=== PATIENT | female | born 1990 | race Two or more races ===

== ENCOUNTER 2019-11-03 10:52 | Emergency (ER) | payer OTHER ==
[~2019-11-03] VITALS: Ht 160 cm; Wt 70.3 kg
[2019-11-03 11:05] VITALS: BP 138/90
== END 2019-11-03 12:57 ==
LOC: ER 10:59
DX: S76.012A Strain of muscle, fascia and tendon of left hip, initial encounter (principal); F41.9 Anxiety disorder, unspecified; F17.200 Nicotine dependence, unspecified, uncomplicated; V49.69XA Unspecified car occupant injured in collision with other motor vehicles in traffic accident, initial encounter; Y93.89 Activity, other specified; Y92.413 State road as the place of occurrence of the external cause; Y99.8 Other external cause status
CPT/HCPCS: 73502

== ENCOUNTER 2019-12-30 03:54 | Emergency (ER) | payer OTHER ==
[~2019-12-30] VITALS: Ht 157.5 cm; Wt 65.8 kg
[2019-12-30 04:02] VITALS: BP 131/87
[2019-12-30] MEDS ORDERED: DEXAMETHASONE SOD PHOSPHATE 10 MG/ML VIAL ONE (04:56)
[2019-12-30] MEDS ORDERED: DEXAMETHASONE SOD PHOSPHATE 4 MG/ML VIAL IM ONE (05:00)
== END 2019-12-30 05:05 | disposition home or self-care (01) ==
LOC: ER 03:56
DX: J04.0 Acute laryngitis (principal); J06.9 Acute upper respiratory infection, unspecified; Z98.890 Other specified postprocedural states
CPT/HCPCS: 87880; 96372; 99283; J1100; 86403-TC

== ENCOUNTER 2020-06-04 18:07 | Emergency (ER) | payer SELFPAY ==
[~2020-06-04] VITALS: Ht 160 cm; Wt 75.3 kg
--- NOTE | 2020-06-04 20:00 | NUR ---
PATIENT CAME TO ER BED 11 C/O LEFT SIDED CHEST CRAMPING PAIN RADIATING TO THE RIGHT SIDE OF HER CHEST SINCE YESTERDAY FOR 2 MONTHS. PATIENT STATES THAT SHE HAS BEEN DRINKING A LOT OF CAFFINATED DAVIN TEA. PATIENT IS AAOX4. NO SOB. BREATHING EVENLY AND UNLABORED ON ROOM AIR. CONNECTED TO HOSPICE MUSIC THERAPY.
[2020-06-04] MEDS ORDERED: KETOROLAC TROMETHAMINE INJ 30 MG/ML VIAL ONE (20:04)
--- NOTE | 2020-06-04 20:05 | NUR ---
XRAY AT BEDSIDE FOR XRAY
[2020-06-04] MEDS: IV NS 0.9% 1,000 ML BAG IV ONE (20:07)
[2020-06-04] MEDS: KETOROLAC TROMETHAMINE INJ 30 MG/ML VIAL IV ONE (20:08)
--- NOTE | 2020-06-04 20:12 | NUR ---
BLOOD DRAWNA AND SENT TO LAB.
[2020-06-04 20:22] LABS: BASOPHILS % (AUTO) 0.4 % (0.0-2.0); EOSINOPHILS % (AUTO) 1.5 % (0.0-6.0); HEMATOCRIT 46 % (33-45); HEMOGLOBIN 15.4 g/dL (11.5-14.8); LYMPHOCYTES # (AUTO) 3.2 /CMM (0.8-4.8); LYMPHOCYTES % (AUTO) 30.3 % (20.0-44.0); MEAN CORPUSCULAR HGB CONC 33 g/dl (31.0-36.0); MEAN CORPUSCULAR VOLUME 94 fL (82-100); MONOCYTES # (AUTO) 0.7 /CMM (0.1-1.30); MONOCYTES % (AUTO) 6.1 % (2.0-12.0); NEUTROPHILS # (AUTO) 6.6 /CMM (1.8-8.9); NEUTROPHILS % (AUTO) 61.7 % (43.0-81.0); PLATELET COUNT (AUTO) 348 /CMM (150-450); RED BLOOD CELL COUNT(AUTO) 4.94 MIL/uL (4.0-5.2); WHITE BLOOD COUNT (AUTO) 10.7 K/uL (4.3-11.0)
[2020-06-04 20:37] LABS: ALBUMIN 3.9 g/dL (3.4-5.0); BILIRUBIN,DIRECT 0.1 mg/dL (0.0-0.2); BILIRUBIN,TOTAL 0.4 mg/dL (0.2-1.0); CALCIUM, SERUM 9.5 mg/dL (8.5-10.1); POTASSIUM 3.6 mmol/L (3.5-5.1); TOTAL PROTEIN, SERUM 8.1 g/dL (6.4-8.2)
--- NOTE | 2020-06-04 21:06 | NUR ---
Patient discharged to home in stable condition. Written and verbal after care instructions given. Patient verbalizes understanding of instruction.
--- NOTE | 2020-06-04 21:06 | NUR ---
IV removed. Catheter intact and site benign. Pressure and 4x4 applied to site. No bleeding noted.
[2020-06-04 21:07] VITALS: BP 127/84
== END 2020-06-04 21:08 | disposition home or self-care (01) ==
LOC: ER 18:11
DX: R55 Syncope and collapse (principal); E86.0 Dehydration; R51 Headache; R42 Dizziness and giddiness; Z98.890 Other specified postprocedural states
CPT/HCPCS: 36415; 71045; 80048; 80076; 84703; 85025; 93005; 96361; 96374; 99285; J1885; J7030

== ENCOUNTER 2021-04-30 13:21 | Emergency (ER) | payer OTHER ==
[~2021-04-30] VITALS: Ht 160 cm; Wt 77.1 kg
[2021-04-30 13:30] VITALS: BP 117/60
[2021-04-30] MEDS ORDERED: IBUPROFEN 400 MG TABLET PO ONE (14:30)
[2021-04-30] MEDS ORDERED: ACETAMINOPHEN ES 500 MG TABLET PO ONE (14:30)
[2021-04-30] MEDS ORDERED: ACETAMINOPHEN ES 500 MG TABLET ONE (14:40)
[2021-04-30] MEDS ORDERED: IBUPROFEN 400 MG TABLET ONE (14:41)
--- NOTE | 2021-05-02 01:37 | NUR ---
PER LAB; PT COVID +
== END 2021-04-30 16:28 | disposition home or self-care (01) ==
LOC: ER 13:22
DX: U07.1 COVID-19 (principal); M79.10 Myalgia, unspecified site; F41.9 Anxiety disorder, unspecified
CPT/HCPCS: 71045; 87426; 99284; C9803; U0003

== ENCOUNTER 2021-05-09 09:55 | Emergency (ER) | payer OTHER ==
[~2021-05-09] VITALS: Ht 165.1 cm; Wt 77.1 kg
--- NOTE | 2021-05-09 09:55 | NUR ---
PT BIB SELF C/O COUGH, CONGESTION AND BODYACHES. PT IS COVID +. PT IS AAOX4, NOT IN RESPIRATORY DISTRESS, HOOKED TO WELDING MACHINE ASSEMBLER, KEPT RESTED AND COMFORTABLE. WILL CONTINUE TO MONITOR.
--- NOTE | 2021-05-09 11:05 | NUR ---
AT BEDSIDE FOR EVAL.
--- NOTE | 2021-05-09 11:15 | NUR ---
IV LINE ESTABLISHED BLOOD DRAWN AND SENT TO LAB.
--- NOTE | 2021-05-09 11:19 | NUR ---
CORE WINDING OPERATOR AT BEDSIDE FOR XRAY.
[2021-05-09 11:29] LABS: BASOPHILS # (AUTO) 0.1 K/uL (0.0-0.2); EOSINOPHILS % (AUTO) 0.1 % (0.0-6.0); HEMATOCRIT 42 % (33-45); HEMOGLOBIN 14.6 g/dL (11.5-14.8); LYMPHOCYTES # (AUTO) 1.5 K/uL (0.8-4.8); LYMPHOCYTES % (AUTO) 23.3 % (20.0-44.0); MEAN CORPUSCULAR HGB CONC 35 g/dl (31.0-36.0); MEAN CORPUSCULAR VOLUME 91 fL (82-100); MONOCYTES # (AUTO) 0.5 K/uL (0.1-1.30); MONOCYTES % (AUTO) 7.5 % (2.0-12.0); NEUTROPHILS # (AUTO) 4.3 K/uL (1.8-8.9); NEUTROPHILS % (AUTO) 68.1 % (43.0-81.0); PLATELET COUNT (AUTO) 331 K/uL (150-450); RED BLOOD CELL COUNT(AUTO) 4.63 MIL/uL (4.0-5.2); WHITE BLOOD COUNT (AUTO) 6.2 K/uL (4.3-11.0)
[2021-05-09] MEDS ORDERED: ONDANSETRON HCL/PF 4 MG/2 ML VIAL ONE (11:30)
[2021-05-09] MEDS ORDERED: IV NS 0.9% 1,000 ML BAG IV ONE (11:30)
[2021-05-09] MEDS ORDERED: ACETAMINOPHEN 650 MG/SUPP.RECT RC ONE (11:30)
[2021-05-09] MEDS ORDERED: ONDANSETRON HCL/PF - ER 4 MG/2 ML VIAL IV ONE (11:30)
[2021-05-09 11:42] LABS: CALCIUM, SERUM 8.4 mg/dL (8.5-10.1); CARBON DIOXIDE 26 mmol/L (21-32); CHLORIDE 102 mmol/L (98-107); CREATININE 0.8 mg/dL (0.6-1.3); GLUCOSE 103 mg/dL (74-106); POTASSIUM 3.8 mmol/L (3.5-5.1); SODIUM SERUM 138 mmol/L (136-145); UREA NITROGEN, BLOOD 13 mg/dL (7-18)
[2021-05-09 11:47] LABS: ALANINE AMINOTRANSFERASE 106 U/L (12-78); ALBUMIN 3.2 g/dL (3.4-5.0); ALKALINE PHOSPHATASE 153 U/L (46-116); ASPARTATE AMINOTRANSFERASE 48 U/L (15-37); BILIRUBIN,TOTAL 0.7 mg/dL (0.2-1.0); TOTAL PROTEIN, SERUM 7.7 g/dL (6.4-8.2)
[2021-05-09 13:15] LABS: BILIRUBIN,URINE MODERATE (NEGATIVE); COLOR,URINE YELLOW (YELLOW); LEUKOCYTE ESTERASE ,URINE Negative (NEGATIVE); NITRITE, URINE Negative (NEGATIVE); PROTEIN,URINE 100 mg/dl (NEGATIVE); UGLUCOSE Negative (NEGATIVE)
[2021-05-09 13:20] LABS: BACTERIA,URINE Rare /HPF (None Seen); RBC,URINE NONE SEEN /HPF (0-2); SQUAMOUS EPITHELIAL CELL,UR Few /HPF (None Seen); WBC,URINE NONE SEEN /HPF (0-3)
[2021-05-09] MEDS ORDERED: AZIT250T13 PO (14:01)
--- NOTE | 2021-05-09 14:08 | NUR ---
CALLED PT CONOR PAGE, . HE WILL COME IN 15-20 MINUTES
[2021-05-09 14:27] VITALS: BP 124/61
--- NOTE | 2021-05-09 14:27 | NUR ---
IV removed. Catheter intact and site benign. Pressure and 4x4 applied to site. No bleeding noted. Patient discharged to home in stable condition. Written and verbal after care instructions given. Patient verbalizes understanding of instruction.
== END 2021-05-09 14:27 | disposition home or self-care (01) ==
LOC: ER 09:55
DX: U07.1 COVID-19 (principal); R07.89 Other chest pain; R11.2 Nausea with vomiting, unspecified; F41.9 Anxiety disorder, unspecified; Z98.890 Other specified postprocedural states
CPT/HCPCS: 36415; 71045; 80053; 81001; 84484; 84703; 85025; 85378; 93005; 96361; 96374; 99285; J2405 ×2; J7030

== ENCOUNTER 2021-06-18 11:35 | Emergency (ER) | payer OTHER ==
[~2021-06-18] VITALS: Ht 160 cm; Wt 77.1 kg
[~2021-06-18 11:35] MED LIST: AZIT250T13 PO
[2021-06-18 12:20] VITALS: BP 110/71
--- NOTE | 2021-06-18 12:20 | NUR ---
Patient does not wish to proceed with medical care recommended by Dr. Stockton. Patient given information related to possible complications, up to and including , which could occur as a result of leaving the hospital at this time. Patient verbalizes understanding of risks involved due to leaving against medical advice. Patient has signed AMA form. Refused all labs.
== END 2021-06-18 12:20 | disposition left against medical advice (07) ==
LOC: ER 12:13
DX: R06.02 Shortness of breath (principal); F41.9 Anxiety disorder, unspecified; F17.200 Nicotine dependence, unspecified, uncomplicated; Z98.890 Other specified postprocedural states

== ENCOUNTER 2022-01-24 20:29 | Emergency (ER) | payer OTHER ==
[~2022-01-24] VITALS: Ht 157.5 cm; Wt 72.6 kg
--- NOTE | 2022-01-24 20:58 | NUR ---
TO ER BED 2. BIBS C/O L RIB PAIN, PT FELL A WEEK AGO AND HIT L RIB, BRUISING NOTED. PT CHANGED INTO GOWN. AWAITING MD VANESSA
[2022-01-24] MEDS ORDERED: CYCLOBENZAPRINE 10 MG TABLET ONE (21:26)
[2022-01-24] MEDS ORDERED: KETOROLAC TROMETHAMINE INJ 30 MG/ML VIAL ONE (21:26)
[2022-01-24] MEDS ORDERED: CYCLOBENZAPRINE 10 MG TABLET PO ONE (21:30)
[2022-01-24] MEDS ORDERED: LIDOCAINE 5% (PATCH) 1 EA PATCH TP SCH (21:30)
[2022-01-24] MEDS ORDERED: KETOROLAC TROMETHAMINE INJ 60 MG/2 ML VIAL IM ONE (21:30)
--- NOTE | 2022-01-24 21:38 | NUR ---
LICENSED OPTICIAN AT PT'S BEDSIDE
--- NOTE | 2022-01-24 22:37 | NUR ---
LIDODERM PATCH 5% NOT AVAILABLE, MADE AWARE
--- NOTE | 2022-01-24 22:55 | NUR ---
INCENTIVE SPIROMETER EDUCATION PROVIDED TO PT
[2022-01-24] MEDS ORDERED: LIDO30AD10 TP (22:56)
[2022-01-24] MEDS ORDERED: CYCL5TAB PO (22:56)
[2022-01-24] MEDS ORDERED: IBUP-1953 PO (22:56)
--- NOTE | 2022-01-24 23:10 | NUR ---
Patient discharged to home in stable condition. Written and verbal after care instructions given. Patient verbalizes understanding of instruction.
[2022-01-24 23:12] VITALS: BP 144/79
== END 2022-01-24 23:12 | disposition home or self-care (01) ==
LOC: ER 20:36
DX: S20.212A Contusion of left front wall of thorax, initial encounter (principal); F41.9 Anxiety disorder, unspecified; Z86.19 Personal history of other infectious and parasitic diseases; Z79.1 Long term (current) use of non-steroidal anti-inflammatories (NSAID); Z79.899 Other long term (current) drug therapy; W01.0XXA Fall on same level from slipping, tripping and stumbling without subsequent striking against object, initial encounter; Y93.89 Activity, other specified; Y92.89 Other specified places as the place of occurrence of the external cause; Y99.8 Other external cause status
CPT/HCPCS: 71100; 96372; 99283; J1885

== ENCOUNTER 2023-05-31 08:39 | Emergency (ER) | payer OTHER ==
[~2023-05-31] VITALS: Ht 162.6 cm; Wt 72.6 kg
[~2023-05-31 08:39] MED LIST changes: +CYCL5TAB PO; +IBUP-1953 PO; +LIDO30AD10 TP
[2023-05-31] MEDS ORDERED: ACETAMINOPHEN ES 500 MG TABLET ONE (09:08)
[2023-05-31 09:21] LABS: BASOPHILS % (AUTO) 0.2 % (0.0-2.0); EOSINOPHILS # (AUTO) 0.1 K/uL (0.0-0.7); EOSINOPHILS % (AUTO) 1.5 % (0.0-6.0); HEMATOCRIT 42 % (33-45); HEMOGLOBIN 14.2 g/dL (11.5-14.8); LYMPHOCYTES % (AUTO) 32.6 % (20.0-44.0); MEAN CORPUSCULAR HEMOGLOBIN 30 PG (26.0-33.0); MEAN CORPUSCULAR HGB CONC 34 g/dl (31.0-36.0); MEAN CORPUSCULAR VOLUME 88 fL (82-100); MONOCYTES # (AUTO) 0.5 K/uL (0.1-1.30); MONOCYTES % (AUTO) 5.9 % (2.0-12.0); NEUTROPHILS # (AUTO) 5.5 K/uL (1.8-8.9); NEUTROPHILS % (AUTO) 59.8 % (43.0-81.0); PLATELET COUNT (AUTO) 315 K/uL (150-450); RED CELL DISTRIBUTION WIDTH 12.6 % (11.5-15.0); WHITE BLOOD COUNT (AUTO) 9.2 K/uL (4.3-11.0)
[2023-05-31 09:25] LABS: APPEARANCE,URINE CLEAR (CLEAR); BILIRUBIN,URINE NEGATIVE (NEGATIVE); BLOOD, URINE 1+ Ery/uL (NEGATIVE); COLOR,URINE YELLOW (YELLOW); KETONES,URINE NEGATIVE (NEGATIVE); LEUKOCYTE ESTERASE ,URINE TRACE (NEGATIVE); NITRITE, URINE NEGATIVE (NEGATIVE); PH,URINE 6.5 (5.0-8.0); PROTEIN,URINE NEGATIVE (NEGATIVE); UGLUCOSE NEGATIVE (NEGATIVE); UROBILINOGEN,URINE 0.2 EU/dL (0.2)
[2023-05-31] MEDS ORDERED: IV NS 0.9% 1,000 ML BAG IV ONE (09:30)
[2023-05-31] MEDS ORDERED: ACETAMINOPHEN ES 500 MG TABLET PO ONE (09:30)
[2023-05-31 09:37] LABS: CALCIUM, SERUM 8.9 mg/dL (8.5-10.1); CREATININE 0.8 mg/dL (0.6-1.3); POTASSIUM 4.1 mmol/L (3.5-5.1)
[2023-05-31 09:43] LABS: ALBUMIN 3.5 g/dL (3.4-5.0); BILIRUBIN,DIRECT 0.1 mg/dL (0.0-0.2); BILIRUBIN,TOTAL 0.4 mg/dL (0.2-1.0); TOTAL PROTEIN, SERUM 7.5 g/dL (6.4-8.2)
[2023-05-31 10:09] LABS: ADD URINE CULTURE NO; WBC,URINE 0-2 /HPF (0-3)
[2023-05-31 10:10] LABS: BACTERIA,URINE Few /HPF (None Seen); SQUAMOUS EPITHELIAL CELL,UR Few /HPF (None Seen)
[2023-05-31] MEDS ORDERED: KETOROLAC TROMETHAMINE 15 MG/ML VIAL ONE ×2 (10:52→10:53)
[2023-05-31] MEDS ORDERED: KETOROLAC TROMETHAMINE INJ 30 MG/ML VIAL IV ONE (11:00)
[2023-05-31 11:01] VITALS: BP 114/78; TEMP 98; O2SAT 100
== END 2023-05-31 11:02 | disposition home or self-care (01) ==
LOC: ER 08:41
DX: M54.50 Low back pain, unspecified (principal); N93.9 Abnormal uterine and vaginal bleeding, unspecified; F41.9 Anxiety disorder, unspecified; F17.200 Nicotine dependence, unspecified, uncomplicated
CPT/HCPCS: 99285; 96374; 76856; 96361; 85025; 80048; 80076; 81001; 36415; 86850; 84702; J7030; J1885